=== PATIENT | female | born 1985 | race Caucasian/White ===

== ENCOUNTER 2019-07-17 12:24 | Emergency (ER) | payer BC, SELFPAY ==
[2019-07-17 13:02] VITALS: BP 124/72; PULSE 118; RESP 20; TEMP 36.8; O2SAT 95; BMI 34.1
--- NOTE | 2019-07-17 13:55 | ED_ITS ---
HPI - Skin/Abscess/Foreign Bdy General: Chief complaint: Skin/Abscess/Foreign Body Stated complaint: abscess to right hip Time Seen by Provider: 07/17/19 13:46 Source: patient Mode of arrival: ambulatory Limitations: no limitations History of Present Illness: HPI narrative: Patient is a 33-year-old female at 20 weeks here for complaints of redness/infection to her right thigh. Patient tells me she initially began noticing a small area of redness on Thursday but states over the weekend area has continued to enlarge. Patient was seen by Christian Stallings PA-C yesterday and prescribed Ceftin. She has had 2 total doses of this medication. Patient was seen again today for reevaluation and referred to the emergency department for further evaluation. Patient has not been running fevers. She does not complain of body aches, chills. MD complaint: lesion Onset (ago): day(s) Tetanus up to date: yes Location: RLE Associated symptoms: Deny chills or fever(s) Treatments prior to arrival: antibiotic Review of Systems Const: Denies: fever(s), chills, body aches, change in appetite, fatigue or malaise Musc: Reports: extremity pain (R thigh over redness); Denies: neck pain, back pain, extremity swelling, joint pain or joint swelling Skin/Breast: Reports: other (redness/lesion to R thigh) Neuro: Denies: numbness in extremities, weakness in extremities or difficulty walking [facility] PFSH: Medical History (Updated 07/17/19 @ 16:40 by SKY Fine) IUP (intrauterine ), incidental Social History Smoking and tobacco status: current every day smoker cigarettes Quit status (tobacco): has tried quititng Alcohol intake: current Alcohol intake frequency: holidays/special occasions only Desire information about substance/drug rehabilitation?: No History of recent travel: No Current gender identity: Female Female Reproductive History: Date of last menstrual period: 02/26/19 Physical Exam Const: COMMON NORMALS: no acute distress, average body habitus, patient oriented x3, no limitations, healthy appearing, alert and well nourished Resp: COMMON NORMALS: normal respiratory effort and clear to auscultation bilaterally AUSCULTATION: clear to auscultation bilaterally Cardio: COMMON NORMALS: regular rate and regular rhythm RATE: regular rate RHYTHM: regular rhythm GI: INSPECTION: Yes gravid abdomen Extremity: OTHER: pt has an area of erythema to her anterior R upper thigh measuring approximately 14x8cm; there is a very small punctate lesion where pt states erythema initially began; there is mild underlying induration under punctate lesion but no fluctuance; does not involve groin or perineal region Neuro: COMMON NORMALS: patient oriented x3 SENSORIUM/ORIENTATION: Yes alert Skin: OTHER: see extremity assessment Course Vital Signs: Vital signs: Vital Signs Temperature 98.3 F 07/17/19 13:02 Pulse Rate 98 07/17/19 14:57 Respiratory Rate 20 H 07/17/19 14:57 Blood Pressure 110/55 07/17/19 14:57 Pulse Oximetry 95 07/17/19 14:57 MDM - Skin/Abscess/Foreign Bdy MDM Narrative: Medical decision making narrative: Patient's white count is mildly elevated at 11.7. She was tachycardic upon arrival however now that she is seated and rested heart rate is normal. Her lactate is normal. There is no drainable fluid collection at this time. She is only had 2 doses of oral antibiotics therefore she has not failed outpatient therapy at this time. She was given a dose of IV vancomycin and will be discharged home with instructions to continue her antibiotics. She has no history or risk factors for MRSA. Strict return to ED precautions given regarding worsening redness despite antibiotic therapy. Lab Data: Labs: Lab Results 07/17/19 07/17/19 07/17/19 Range/Units 14:05 14:05 14:05 WBC 11.7 H (4.0-10.0) 10^3/ uL RBC 3.73 L (4.1-5.3) 10^6/u L Hgb 11.9 (11.5-15.3) g/dL Hct 35.2 L (37.0-47.0) % MCV 94.4 (81-99) fL MCH 31.9 (28.0-34.0) pg MCHC 33.8 (30.0-36.0) g/dL RDW 12.3 (12.1-15.1) % Plt Count 355 (130-400) 10^3/c mm MPV 11.0 H (7.4-10.4) fL Neut % (Auto) 72.2 % Lymph % (Auto) 20.3 % [place] % (Auto) 5.0 % Eos % (Auto) 1.7 % Baso % (Auto) 0.3 % Neut # (Auto) 8.4 H (1.8-7.7) 10^3/u L Lymph # (Auto) 2.4 (0.8-4.8) 10^3/u L [place] # (Auto) 0.6 (0.2-0.9) 10^3/u L Eos # (Auto) 0.2 (0.0-0.8) 10^3/u L Baso # (Auto) 0.0 (0.0-0.1) 10^3/u L Nucleated RBC % (a uto) 0 % Nucleated RBCs # 0.0 /100WBC Sodium 135 L (136-145) mmol/L Potassium 3.8 (3.5-5.1) mmol/L Chloride 102 (98-107) mmol/L Carbon Dioxide 20 L (22-29) mmol/L Anion Gap 16.8 (5-19) BUN 4 L (6-20) mg/dL Creatinine 0.4 L (0.5-0.9) mg/dL GFR Calculation 186.2 H (90-130) mL/min Glucose 101 (65-115) mg/dL Calculated Osmolal ity 276 L (285-295) mOsm/k g Lactate 1.1 (0.5-2.2) mmol/L Calcium 9.4 (8.5-10.5) mg/dL Total Bilirubin 0.3 (0.15-1.2) mg/dL AST 10 (0-32) U/L ALT < 5 (0-33) U/L Alkaline Phosphata se 104 (35-105) IU/L C-Reactive Protein 18.4 H (0.0-4.9) mg/L Total Protein 6.4 L (6.6-8.7) g/dL Albumin 4.0 (3.5-5.2) g/dL Globulin 2.4 (1.3-4.6) g/dL Imaging Data^: US soft tissue extremity : Radiologist's impression: [address] [place] [address] Ultrasound Report Signed Patient: Jamaica Hayes Unit #: [id number] : 1985 Age/Sex: 33 / F ADM Date: 07/17/19 Loc: ER Room/Bed: Attending Dr: Ordering Provider/Ordering MD: Martha Razo Date of Service: 07/17/19 Procedure(s): US soft tissue/extremity 67348 Accession Number(s): [id number] Report Number: [id number] PROCEDURE INFORMATION: Exam: US Right Non-Vascular Joint or Other Extremity Structure, Limited Exam date and time: 07/17/2019 3:37 PM Age: 33 years old Clinical indication: Patient status: Conscious; Pain: Tender to touch; Symptoms: Pain and redness right proximal, anterior thigh; Additional info: Cellulitis/poss abscess R anterior thigh TECHNIQUE: Imaging protocol: Right US Non-Vascular Joint or Other Extremity Structure. Limited exam COMPARISON: No relevant prior studies available. FINDINGS: Soft tissues: Edema and area of pain and redness with no obvious abscess or mass. Vasculature: No DVT in the right common femoral vein. US/US soft tissue/extremity 71843 IMPRESSION: 1. Edema and area of pain and redness with no obvious abscess or mass. 2. No DVT in the right common femoral vein. Dictated By: Gerhard Caraballo MD Signed By: Gerhard Caraballo MD Signed Date/Time: 07/17/191608 DD/ 160 Discharge Plan Discharge Patient Disposition: Home, Self-Care Clinical Impression: Cellulitis of right thigh Condition: Stable Prescriptions: No Action PNV cmb#95-ferrous fumarate-FA [ Multivitamins] 28 mg iron- 800 mcg tablet 1 tab PO DAILY RF: 0 cefuroxime axetil 500 mg tablet 500 mg PO BID 10 Days Qty: 20 RF: 0 mupirocin 2 % ointment 1 applic TOPICAL TID Qty: 15 RF: 1 Discharge Orders: Discharge Order (Routine); Ordered 07/17/19 Ordered By: Martha Razo Referrals: Annabel Santana, [employer] [Primary Care Provider] - Discharge Diet: Usual diet Discharge Activity: Increase activity as tolerated Patient Instructions: Cellulitis (ED) Activity Restrictions/Additional Instructions: As discussed return to the emergency department 24 hours if redness is continuing to spread outside of the marked lines despite taking your antibiotics as prescribed. You may return sooner for vomiting, not being able to hold down your antibiotics, fevers, or any other concerns you may have. [facility] please follow up with primary care next week for re-evaluation. Coding Level of Care Code ED Dispatcher Radio for [facility] Exam Expanded Problem Focused
[2019-07-17 14:16] LABS: Basophils % 0.3 %; Eosinophils # 0.2 10^3/uL (0.0-0.8); Eosinophils % 1.7 %; Hematocrit 35.2 % (37.0-47.0); Hemoglobin 11.9 g/dL (11.5-15.3); Lymphocytes # 2.4 10^3/uL (0.8-4.8); Lymphocytes % 20.3 %; Mean Corpuscular HGB Conc 33.8 g/dL (30.0-36.0); Mean Corpuscular Hemoglobin 31.9 pg (28.0-34.0); Mean Corpuscular Volume 94.4 fL (81-99); Monocytes # 0.6 10^3/uL (0.2-0.9); Neutrophils # 8.4 10^3/uL (1.8-7.7); Neutrophils % 72.2 %; Nucleated Red Blood Cells % 0 %; Platelet Count 355 10^3/cmm (130-400); Red Blood Count 3.73 10^6/uL (4.1-5.3); Red Cell Distribution Width 12.3 % (12.1-15.1); White Blood Count 11.7 10^3/uL (4.0-10.0)
[2019-07-17 14:34] LABS: Alanine Aminotransferase < 5 U/L (0-33); Alkaline Phosphatase 104 IU/L (35-105); Anion Gap 16.8 (5-19); Aspartate Amino Transferase 10 U/L (0-32); Blood Urea Nitrogen 4 mg/dL (6-20); Calcium 9.4 mg/dL (8.5-10.5); Carbon Dioxide 20 mmol/L (22-29); Chloride 102 mmol/L (98-107); Globulin 2.4 g/dL (1.3-4.6); Glomerular Filtration Rate 186.2 mL/min (90-130); Glucose 101 mg/dL (65-115); Lactate (Lactic Acid level) 1.1 mmol/L (0.5-2.2); Osmolality Calculated 276 mOsm/kg (285-295); Potassium 3.8 mmol/L (3.5-5.1); Sodium 135 mmol/L (136-145); Total Bilirubin 0.3 mg/dL (0.15-1.2); Total Protein 6.4 g/dL (6.6-8.7)
[2019-07-17] MEDS: vancomycin 1,000 MG in sodium chloride 0.9% 250 ML 250 MG IV (14:50)
[2019-07-17 14:57] VITALS: BP 110/55; PULSE 98; RESP 20; O2SAT 95
[2019-07-17 15:19] LABS: C Reactive Protein 18.4 mg/L (0.0-4.9)
[2019-07-17] MEDS: diphenhydrAMINE 50 mg/mL SDV 1mL (16:05)
--- NOTE | 2019-07-17 16:52 | PC.NURSE ---
patient had slight itching reaction to vanc pa informed and orders received
[2019-07-17 16:54] VITALS: BP 119/86; PULSE 75; RESP 15; O2SAT 98
== END 2019-07-17 16:55 | disposition home or self-care (01) ==
PROVIDERS: Emergency Provider Physician Assistant; PCP Nurse Practitioner Family
DX: L03.115 Cellulitis of right lower limb (principal); F17.210 Nicotine dependence, cigarettes, uncomplicated
CPT/HCPCS: 12345; 36415; 76882; 80053; 83605; 85025; 86140; 87040; 96365; 99282; 99283; J1200; J3370; J7050